=== PATIENT | female | born 1985 | race Caucasian/White ===

== ENCOUNTER 2022-05-16 02:50 | Outpatient (CLI) | payer BC, SELFPAY ==
[2022-05-16 07:46] LABS: HGB 13.6 g/dL (11.2-15.7)
[2022-05-16 08:19] LABS: ALT 18 U/L (14-59); AST 14 U/L (15-37); Albumin 3.7 g/dL (3.4-5.0); Alkaline Phosphatase 61 U/L (46-116); Anion Gap 5.8 mmol/L (3-11); BUN 17 mg/dL (7-18); Bilirubin, Direct 0.1 mg/dL (0.0-0.2); Bilirubin, Total 0.5 mg/dL (0.2-1.0); CO2 29.2 mmol/L (21.0-32.0); CREATININE 0.8 mg/dL (0.55-1.02); Calcium 8.8 mg/dL (8.5-10.1); Chloride 102 mmol/L (98-107); Glucose 94 mg/dL (74-106); Sodium 137 mmol/L (136-145); TSH (W/Ref FT4) 1.81 uIU/mL (0.36-3.74); Total Protein 6.7 g/dL (6.4-8.2)
[2022-05-16 08:30] LABS: Calculated LDL 92 mg/dL (<100); Cholesterol 170 mg/dL (<200); HDL Cholesterol 68 mg/dL (40-60); Triglyceride 51 mg/dL (<150)
== END 2022-05-16 02:51 | disposition home or self-care (01) ==
LOC: LBO 02:50
PROVIDERS: PCP Student in an Organized Health Care Education/Training Program; Visit Provider Student in an Organized Health Care Education/Training Program
DX: R00.0 Tachycardia, unspecified (principal); K91.5 Postcholecystectomy syndrome; F32.89 Other specified depressive episodes; F41.8 Other specified anxiety disorders; R19.7 Diarrhea, unspecified; Z86.2 Personal history of diseases of the blood and blood-forming organs and certain disorders involving the immune mechanism; Z13.220 Encounter for screening for lipoid disorders
CPT/HCPCS: 36415; 80048; 80061; 80076; 84443; 85018

== ENCOUNTER 2022-06-27 02:09 | Outpatient (CLI) | payer BC, SELFPAY ==
[2022-06-27 15:20] LABS: Source Nasal/Nares
[2022-06-27 21:45] LABS: COVID-19 PCR Negative (Negative)
== END 2022-06-27 02:10 | disposition home or self-care (01) ==
LOC: LBO 02:09
PROVIDERS: PCP Student in an Organized Health Care Education/Training Program; Visit Provider Surgery
DX: Z20.822 Contact with and (suspected) exposure to COVID-19 (principal); Z01.818 Encounter for other preprocedural examination
CPT/HCPCS: 87635

== ENCOUNTER 2022-06-29 07:08 | Day surgery (SDC) | payer BC, SELFPAY ==
[2022-06-29 07:24] VITALS: BP 120/76; PULSE 76; RESP 20; TEMP 36.9; O2SAT 98
--- NOTE | 2022-06-29 07:27 | W.PM.DSUDISC ---
Discharge Plan Disposition Patient Disposition: HOME Condition: Good Discharge Details Reason For Visit: EGD Attending Provider: Asim Kaminski Primary Care Provider: Ghada Lane Home Meds and New Rx's Prescriptions: Continued betamethasone, augmented 0.05 % gel 1 applic topical BID PRN (Reason: psoriasis) Qty: 50 1RF Rx Instructions: Apply to affected area as instructed 1-2 times daily; not to exceed 50g/week. Avoid use on face, armpit, groin, genitals. propranolol 10 mg tablet 10 mg PO BID PRN (Reason: anxiety) Qty: 60 1RF Rx Instructions: Trial for anxiety, panic episodes albuterol sulfate [ProAir HFA] 90 mcg/actuation HFA aerosol inhaler 2 puff inhalation Q6H PRN (Reason: shortness of breath or wheezing) Qty: 8.5 1RF Rx Instructions: Do not take with propranolol escitalopram oxalate 20 mg tablet 20 mg PO DAILY Qty: 90 3RF lorazepam 0.5 mg tablet 0.5 mg PO DAILY PRN (Reason: anxiety, panic episode) Qty: 20 1RF omeprazole 20 mg capsule,delayed release(DR/EC) 20 mg PO DAILY Qty: 60 1RF Rx Instructions: take two capsules by mouth each day for 14 days, then go back to 1 capsule if you are feeling better Discharge Instructions Instructions: Upper Endoscopy (DC) Additional Instructions: 1. If tolerated, consume a soft, low fiber diet for 1-2 days. [address] Do not drive, drink alcohol, operate machinery, make critical decisions, or do activities that require coordination or balance for 24 hours. 3. You may experience a sore throat for 24 to 48 hours. You may use throat lozenges or gargle with warm salt water to relieve the discomfort. 4. Because air was put into your stomach during the procedure, you may experience some belching. 5. Go directly to the emergency room if you notice any of the following: Develop chills (warm to touch), or if you have a thermometer and your temperature is above 101 Difficulty breathing or difficultly swallowing Persistent vomiting Severe abdominal pain, other than gas cramps Severe chest pain Black, tarry stools Any bleeding ? exceeding one tablespoon 6. Call your physician if the site where your intravenous was started becomes red, swollen, painful, and warm to touch. 7. Your physician has reviewed your pre-procedure medications. Please continue to take those medications as previously ordered. You will be given specific information/education regarding any changes to your medications before leaving. Referrals: Ghada Lane DO [Primary Care Provider] - Activity:: Activity as Tolerated Diet:: As Tolerated Discharge Orders Discharge Orders: Discharge Order (Routine); Ordered 06/29/22 Ordered By: Asim Kaminski DS: Diagnosis Discharge Diagnosis (1) Esophageal ulcer: Status: Acute Asessment and Plan: increase omeprazole dose as instructed my office will call you with biospy results
--- NOTE | 2022-06-29 07:29 | W.PM.ENDDOP ---
Date of service: 06/29/22 Time of Service: 08:38 Endoscopy Report DATE OF PROCEDURE: 06/29/22 PRE-OP DIAGNOSIS: GERD POST-OP DIAGNOSIS: other (esophageal ulcer) PROCEDURE: EGD SURGEON: Asim Kaminski ANESTHESIA TYPE: General:No Airway ESTIMATED BLOOD LOSS: 10 PATHOLOGY: other (random biopsy duodenum, stomach antrum and body; biospy esophageal ulcer) COMPLICATIONS: None DISPOSITION: same day INDICATIONS: Wicho is a 37-year-old woman with longstanding gastroesophageal reflux disease, and a history of probable H. pylori. Recently, she has been having some exacerbation of her GERD symptoms. PROCEDURE START TIME: 08:23 PROCEDURE END TIME: 08:30 FINDINGS: Normal-appearing stomach and duodenum, esophageal ulcer at 15 cm PROCEDURE DESCRIPTION: After the initiation of monitored anesthetic care, and with the assistance of a bite block, I advanced a standard gastroscope through the mouth past the hypopharynx and into the esophagus.? Under the direct vision of the scope, I advanced down the esophagus into the stomach.? Once I entered the stomach, I performed a brief inspection, followed by retroflexion towards the gastric cardia.? This appeared normal.? After that, I gently advanced the scope around the incisura angularis and examined the pylorus.? This also appeared normal.? Next, I advanced the scope through the pylorus into the duodenum.? The mucosa was pink and healthy appearing.? There were no abnormalities.? I was able to visualize bile draining into the duodenum through the ampulla Vater. ?In light of her longstanding history of gastroesophageal reflux disease, I performed random biopsies of the duodenum. Next, I began retracting the endoscope.? Again, I returned to the stomach which was carefully examined.?I then gently desufflated some of the stomach, and withdrew the endoscope into the distal esophagus. The Z-line was normal-appearing around 35 cm. Around 15 cm from the incisors, I noticed a small area of ulceration. I performed a biopsy here using cold forceps. There was minimal bleeding. ?Finally, I withdrew the scope along the length of the esophagus taking great care to examine the entirety of the mucosa.? I did not appreciate any other abnormalities.
[2022-06-29] MEDS: Lactated Ringers 1,000 ML 80 ML IV (07:48)
--- NOTE | 2022-06-29 08:00 | W.ANESPRE ---
General Info Date of Service Date Performed: 06/29/22 Height: 5 ft 4 in Weight: 90.7 kg Body Mass Index (BMI): 34.3 Surgical Procedure: Operation Date: 06/29/22 08:20 Proposed Procedure Side Surgeon p Gastroscopy Asim Kaminski MD Meds Allergies and Home Medications Allergies Allergy/AdvReac Type Severity Reaction Status Date / Time cephalexin [From Keflex] Allergy Severe Hives Unverified 06/29/22 07:31 Penicillins Allergy Severe Hives Unverified 06/29/22 07:31 Sulfa (Sulfonamide Allergy Severe Hives Unverified 06/29/22 07:31 Antibiotics) Home Medication Medication Instructions Recorded betamethasone, augmented 0.05 % 1 applic topical BID PRN psoriasis 05/06/22 topical gel #50 grams omeprazole 20 mg capsule,delayed 20 mg PO DAILY #30 caps 05/06/22 release propranolol 10 mg tablet 10 mg PO BID PRN anxiety #60 tabs 05/06/22 albuterol sulfate 90 mcg/actuation 2 puff inhalation Q6H PRN 06/02/22 aerosol inhaler (ProAir HFA) shortness of breath or wheezing #8.5 grams escitalopram oxalate 20 mg tablet 20 mg PO DAILY anxiety #90 tabs 06/02/22 lorazepam 0.5 mg tablet 0.5 mg PO DAILY PRN anxiety, panic 06/02/22 episode #20 tabs Current Visit Medications: Current Medications Generic Name Dose Route Start Last Admin Trade Name Freq PRN Reason Stop Dose Admin Ringer's Solution 1,000 mls @ 80 mls/hr 06/29/22 06:00 06/29/22 07:48 IV 07/28/22 23:59 80 mls/hr INFUSION CODI Administration IV Miscellaneous Supplies 1 each 06/29/22 06:00 Iv Access IV 07/28/22 23:59 DIRECTED CODI Sodium Chloride 0 ml 06/29/22 06:00 Normal Saline Flush 10 Ml Syr IV 07/28/22 23:59 PRN PRN Sodium Chloride 0 ml 06/29/22 06:00 Normal Saline 10 Ml Vial IJ 07/28/22 23:59 DIRECTED PRN Sterile Water 0 ml 06/29/22 06:00 Water,Injection,Sterile 10 Ml Vial IJ 07/28/22 23:59 DIRECTED PRN PFSH Active Problems Active Problems: Problem Status Onset Code GERD (gastroesophageal reflux disease) K21.9 IBS (irritable bowel syndrome) K58.9 Medical History Medical History Acute sore throat Anxiety Depression Hx of recurrent pneumonia Pneumonia Post-cholecystectomy syndrome Presumed 2' liquid stools, post surgery (teen) Tachycardia Medical History Comments:: Please list to Pt's heart, gallop?HE Surgical History Surgical History History of esophagogastroduodenoscopy (EGD) Hx of breast augmentation Hx of tonsillectomy S/P appendectomy S/P cholecystectomy Tobacco Smoking/Tobacco Use Status: Current-Occasional Tobacco Type: cigarettes Alcohol Alcohol Intake: current Alcohol intake frequency: a few times a week Substance Use Substance use: Daily Substance use type: marijuana Details: last used 06/28/22 smokes it.HE Vital Signs and Lab Results Vital Signs Most Recent Vital Signs in EMR: Most Recent Vital Signs Temp Pulse Resp BP Pulse Ox 36.9 C 76 20 120/76 98 06/29/22 07:24 06/29/22 07:24 06/29/22 07:24 06/29/22 07:24 06/29/22 07:24 Point of Care Results Point of Care Results: POC- Test(urine) Negative 06/29/22 07:42 Lab Results Blood Type / Crossmatch: No Data to Display Complete Blood Count: No Data to Display Complete Metabolic Panel: No Data to Display Liver Function Panel: No Data to Display Coagulation Panel: No Data to Display Cardiac Panel: No Data to Display Arterial Blood Gas: No Data to Display Venous Blood Gas: No Data to Display Pancreas Panel: No Data to Display Thyroid Panel: No Data to Display Infectious Disease: Coronavirus (COVID-19)(PCR) Negative (Negative) 06/27/22 14:49 Coronavirus 2019 Source Nasal/Nares 06/27/22 14:49 Blood Cultures: No Data to Display Toxicology Panel: No Data to Display Panel: No Data to Display Anesthesia Assessment and Plan Anesthesia History Personal History: No History of Anesthesia Complications Family History: No Family History of Anesthesia Complications Exercise Tolerance Exercise Tolerance: Metabolic Equivalents>4 Pertinent Negatives Pertinent Negatives: No Major Cardiovascular Symptoms or Complaints and No Major Pulmonary Symptoms or Complaints Cardiac & Pulmonary Exam Cardiac Exam: Normal S1/S2 Heart Sounds Pulmonary Exam: Clear Bilateral Breath Sounds Implantable Cardiac Device Does patient have a Pacemaker or an ICD?: No Airway Exam Known Difficult Airway: No Mallampati Class: 1 Mouth Opening: Normal (> 3cm) Thyromental Distance: Greater than 3 cm Neck Range of Motion: Full ROM Neck Circumference: Normal Teeth Condition: Normal Dentition ASA Classification ASA Score: ASA 2 Emergency Case?: No NPO Status NPO Status: NPO Clears >2 hours, Solids >8 hours Status Status: Negative HCG Anesthesia Plan Resuscitation Status: Full Code Anesthesia Technique: General Anesthesia Airway Planned: Natural Airway Monitors Used: Standard Monitors
[2022-06-29 08:02] VITALS: BMI 34.3
--- NOTE | 2022-06-29 08:26 | STOM_PTH ---
PATIENT: Wicho Morris LOC: [facility] U#:[id number] AGE/SX: 37/F ROOM: RE06/29/[address]: Asim Kaminski MD : [id number] BED: DIS: 06/29/2022 SPEC #: [id number] RECD: 06/29/22 12:31 STATUS: LESLEE RE #: [id number] KATERINA: 06/29/22 08:[address]: Asim Kaminski DEPT: Surgical Specimen RECD BY: Mary Acuña ENTERED: 06/29/22 12:33 SP TYPE: STOMACH OTHR DR: Ghada Lane DO Tissues: 1 - BIOPSY BOWEL 2 - STOMACH BIOPSY 3 - STOMACH BIOPSY 4 - ESOPHAGUS BIOPSY Procedures: GROSS AND MICRO LEVEL 4 Comments: [id number]
[2022-06-29 08:38] VITALS: BP 115/74; PULSE 71; RESP 18; TEMP 36.5; O2SAT 99
[2022-06-29 09:07] VITALS: BP 131/86; PULSE 63; RESP 18; TEMP 36.4; O2SAT 100
--- NOTE | 2022-06-29 09:34 | W.ANESPOSTOP ---
Postoperative Evaluation Date, Time and Location Date Performed: 06/29/22 Time Performed: 08:50 Patient Location: Day Surgery Unit Vital Signs Most Recent Imported Vital Signs: Most Recent Vital Signs Temp Pulse Resp BP Pulse Ox 36.4 C L 63 18 131/86 100 06/29/22 09:07 06/29/22 09:07 06/29/22 09:07 06/29/22 09:07 06/29/22 09:07 Pain Score Most Recent Pain Score: Most Recent Pain Score Pain Level 0 06/29/22 09:07 Assessment Mental Status: Awake (Alert & Oriented to Patient Baseline) Airway and Respiratory Function: Patent airway with normal (patient baseline) respiratory exam Cardiovascular Function: Hemodynamically Stable Hydration Status: Adequately Hydrated Nausea & Vomiting: No Nausea or Vomiting Pain: Pt. Denies Any Pain Peripheral Nerve Block: Patient did not receive a nerve block
== END 2022-06-29 09:17 | disposition home or self-care (01) ==
PROVIDERS: PCP Student in an Organized Health Care Education/Training Program; Visit Provider Surgery
PROC: 0DJ68ZZ Inspection of Stomach, Via Natural or Artificial Opening Endoscopic (ICD-10-PCS; CPT 43235; principal; 2022-06-29 08:15)
DX: K22.10 Ulcer of esophagus without bleeding (principal); K21.9 Gastro-esophageal reflux disease without esophagitis; F41.9 Anxiety disorder, unspecified; F32.A Depression, unspecified; F17.210 Nicotine dependence, cigarettes, uncomplicated; K22.89 Other specified disease of esophagus; K31.89 Other diseases of stomach and duodenum
CPT/HCPCS: 43239; 81025; 88305

== ENCOUNTER 2022-08-06 11:35 | Emergency (ER) | payer BC, SELFPAY ==
[2022-08-06 11:38] VITALS: BP 140/78; PULSE 79; RESP 18; TEMP 36.7; O2SAT 99
--- NOTE | 2022-08-06 16:40 | NUR.NOTE ---
Nursing Note: Patient stated to Access that she had to leave to pick someone up in [facility] [address]
== END 2022-08-06 14:04 | disposition left before discharge ==
PROVIDERS: Emergency Provider Student in an Organized Health Care Education/Training Program; PCP Student in an Organized Health Care Education/Training Program
DX: Z53.21 Procedure and treatment not carried out due to patient leaving prior to being seen by health care provider (principal)

== ENCOUNTER 2022-11-05 13:35 | Outpatient (REF) | payer BC, SELFPAY | END 2022-11-05 13:36 | disposition home or self-care (01) | LOC: LBN 13:35 | PROVIDERS: PCP Student in an Organized Health Care Education/Training Program; Visit Provider Nurse Practitioner Family | DX: J02.9 Acute pharyngitis, unspecified (principal) | CPT/HCPCS: 87070 ==

== ENCOUNTER 2023-07-05 09:50 | Outpatient (CLI) | payer BC, SELFPAY ==
[2023-07-05 10:23] LABS: Abs Immature Grans 0.02 10^3/uL (0.0-0.06); Absolute Basophil Count 0.03 10^3/uL (0.0-0.2); Absolute Eosinophil Count 0.06 10^3/uL (0.0-0.7); Absolute Lymphocyte Count 1.65 10^3/uL (1.2-3.4); Absolute Neutrophil Count 4.17 10^3/uL (1.2-6.7); Basophils % 0.5; Eosinophils % 0.9; HGB 13.4 g/dL (11.2-15.7); Immature Grans % 0.3; Lymphocytes % 25.3; MCH 31.6 pg (27.0-33.0); MCHC 34.4 % (32.0-36.0); MCV 92 fL (80-95); Monocytes % 9.2; Neutrophils % 63.8; Platelet Count 222 10^3/uL (130-400); RBC 4.24 10^6/uL (3.93-5.22); RDW 11.9 % (11.7-14.6); RDW-SD 40.1 fL; WBC 6.53 10^3/uL (4.4-10.8)
[2023-07-05 10:27] LABS: ESR 14 mm/hr (0-20)
[2023-07-05 11:05] LABS: ALT 54 U/L (14-59); AST 42 U/L (15-37); Albumin 3.6 g/dL (3.4-5.0); Alkaline Phosphatase 97 U/L (46-116); Anion Gap 9.5 mmol/L (3-11); BUN 13 mg/dL (7-18); Bilirubin, Total 0.4 mg/dL (0.2-1.0); C-Reactive Protein 3.02 mg/dL (0.0-0.3); CO2 26.5 mmol/L (21.0-32.0); CREATININE 0.7 mg/dL (0.55-1.02); Calcium 8.8 mg/dL (8.5-10.1); Chloride 102 mmol/L (98-107); Estimated GFR 114.88 (mL/min/1.73m2); Glucose 97 mg/dL (74-106); Sodium 138 mmol/L (136-145); TSH (W/Ref FT4) 1.84 uIU/mL (0.36-3.74)
[2023-07-06 11:19] LABS: HIV-1/2 Ag & Ab Screen Negative (Negative)
[2023-07-08 09:51] LABS: Syphilis Serology (RPR) Negative (Negative)
[2023-07-08 09:56] LABS: Lyme Ab w Rflx to Lyme Confirm Negative (Negative)
[2023-07-09 07:39] LABS: Anaplasma phagocytophilum Negative (Negative); B. miyamotoi PCR Negative (Negative); Babesia divergens/MO-1 Negative (Negative); Babesia duncani Negative (Negative); Babesia microti Negative (Negative); Ehrlichia chaffeensis Negative (Negative); Ehrlichia ewingii/canis Negative (Negative); Ehrlichia muris eauclairensis Negative (Negative)
== END 2023-07-05 09:51 | disposition home or self-care (01) ==
LOC: LBO 09:50
PROVIDERS: PCP Student in an Organized Health Care Education/Training Program; Visit Provider Family Medicine
DX: R61 Generalized hyperhidrosis (principal)
CPT/HCPCS: 36415; 80053; 85652; 87389; 87798; 84443; 85025; 86140; 86592; 86618

== ENCOUNTER → 2023-07-05 14:45 | Outpatient (CLI) | payer BC, SELFPAY ==
--- NOTE | 2023-07-05 09:30 | DI.RAD_ITS ---
Exam(s) XR FOOT RT COMPLETE EXAM: XR FOOT RT COMPLETE CLINICAL HISTORY: Possible 4th toe fracture S99.331A INJURY. TECHNIQUE: 2D digital imaging was performed of the right foot. Three images were obtained. AP, obl ique and lateral views were obtained. COMPARISON: No exams were available for comparison FINDINGS: BONES: No acute fracture is present. No bony destructive lesion is seen. There is a small plantar nikko caneal spur. JOINTS: No dislocation present. SOFT TISSUE: Normal. IMPRESSION: Unremarkable radiographs of the right foot. DATA REPOSITORY: RADIATION DOSE DELIVERED:
== END ==
PROVIDERS: PCP Student in an Organized Health Care Education/Training Program; Visit Provider Family Medicine
DX: M79.674 Pain in right toe(s) (principal)
CPT/HCPCS: 73630

== ENCOUNTER 2023-08-27 17:34 | Outpatient (CLI) | payer BC, SELFPAY ==
[2023-08-27 13:25] LABS: ALT 26 U/L (14-59); AST 23 U/L (15-37); Albumin 4.1 g/dL (3.4-5.0); Alkaline Phosphatase 79 U/L (46-116); Anion Gap 6.6 mmol/L (3-11); BUN 16 mg/dL (7-18); Bilirubin, Direct 0.1 mg/dL (0.0-0.2); Bilirubin, Total 0.3 mg/dL (0.2-1.0); C-Reactive Protein 0.21 mg/dL (0.0-0.3); CO2 27.4 mmol/L (21.0-32.0); CREATININE 0.8 mg/dL (0.55-1.02); Calcium 9.4 mg/dL (8.5-10.1); Chloride 101 mmol/L (98-107); Estimated GFR 97.87 (mL/min/1.73m2); Glucose 94 mg/dL (74-106); Sodium 135 mmol/L (136-145); Total Protein 7.5 g/dL (6.4-8.2)
[2023-08-27 13:38] LABS: Folate 14.1 ng/mL (8.6-20.0)
[2023-08-27 13:51] LABS: Vitamin D 25 Total 28.2 ng/mL (30-100)
[2023-08-27 14:06] LABS: Calculated LDL 150 mg/dL (<100); Cholesterol 242 mg/dL (<200); HDL Cholesterol 73 mg/dL (40-60); Triglyceride 95 mg/dL (<150); Vitamin B12 206 pg/mL (193-986)
[2023-08-27 17:09] LABS: ESR (LRH) 7 mm/hr
[2023-08-28 10:14] LABS: Lyme Ab w Rflx to Lyme Confirm Negative (Negative)
[2023-08-28 13:46] LABS: ANA Interpretation Negative (Negative)
[2023-08-29 20:14] LABS: Anaplasma phagocytophilum Negative (Negative); B. miyamotoi PCR Negative (Negative); Babesia divergens/MO-1 Negative (Negative); Babesia duncani Negative (Negative); Babesia microti Negative (Negative); Ehrlichia chaffeensis Negative (Negative); Ehrlichia ewingii/canis Negative (Negative); Ehrlichia muris eauclairensis Negative (Negative)
== END 2023-08-27 17:35 | disposition home or self-care (01) ==
LOC: LBO 17:34
PROVIDERS: PCP Student in an Organized Health Care Education/Training Program; Visit Provider Student in an Organized Health Care Education/Training Program
DX: A09 Infectious gastroenteritis and colitis, unspecified (principal); K21.9 Gastro-esophageal reflux disease without esophagitis; K90.9 Intestinal malabsorption, unspecified; M77.9 Enthesopathy, unspecified; Z13.220 Encounter for screening for lipoid disorders
CPT/HCPCS: 36415; 80048; 80061; 80076; 82306; 85652; 87798; 82607; 82746; 86038; 86140; 86618